=== PATIENT | male | born 1980 | race Caucasian/White ===

== ENCOUNTER 2021-10-21 00:45 | Emergency (ER) | payer BC ==
[2021-10-21] MEDS: Take Home: Amoxicillin/Clavulanate K 875-125 MG Tab, 2 Tab Pack PO ONE (01:02)
[2021-10-21] MEDS: Take Home: Acetaminophen/HYDROcodone 325-5 MG, 5 Tab Pack PO ONE (01:02)
== END 2021-10-21 01:10 | disposition home or self-care (01) ==
LOC: VM.ED 00:45
DX: K02.9 Dental caries, unspecified (principal); Z88.5 Allergy status to narcotic agent
CPT/HCPCS: 99282; 99283; A9270